=== PATIENT | female | born 1960 | race Caucasian/White ===

== ENCOUNTER → 2024-02-25 09:25 | Outpatient (REF) | payer BC, SELFPAY | LOC: RAD 09:25 | PROVIDERS: ATTENDING PHYSICIAN Internal Medicine Endocrinology, Diabetes & Metabolism; FAMILY PHYSICIAN Physician Assistant Medical | DX: R22.1 Localized swelling, mass and lump, neck (principal) | CPT/HCPCS: 70492; Q9967 ==

== ENCOUNTER → 2024-03-20 06:21 | Day surgery (SDC) | payer BC, SELFPAY | LOC: GI 06:21 | PROVIDERS: ATTENDING PHYSICIAN Internal Medicine Gastroenterology; FAMILY PHYSICIAN Physician Assistant Medical | DX: K22.2 Esophageal obstruction (principal); K31.A0 Gastric intestinal metaplasia, unspecified; K31.7 Polyp of stomach and duodenum; K29.50 Unspecified chronic gastritis without bleeding | CPT/HCPCS: 43239; 88305; 88342 ==

== ENCOUNTER 2024-04-28 09:00 | Emergency (ER) | payer BC, SELFPAY ==
[2024-04-28 09:03] VITALS: BP 162/90
--- NOTE | 2024-04-28 09:58 | ED.GENMED ---
History of Present Illness
General
Chief Complaint: Abdominal Pain
Source: patient
Exam Limitations: none
Time Seen by Provider: 04/28/24 09:32
Nursing documentation reviewed up to this point in time: agreed with
History of Present Illness
History of Present Illness:
Patient presents to ED secondary to intermittent upper abdominal pain associated with nausea sensation over the past 5 days. Abdominal pain described as sharp, nonradiating, without any alleviating or exacerbating factors. Denies fever or chills.
Denies trauma. Denies vomiting or diarrhea. Denies change in bowel habits. denies recent change in medications or diet. Denies previous history of similar symptoms.
Review of Systems
Review of Systems
Allergies reviewed?: Yes
All Other Systems: ROS reviewed and negative except as documented in HPI and ROS
Constitutional: Reports no symptoms; Denies fever or chills
ABD/GI: Reports abdominal pain and vomiting; Denies nausea or diarrhea
: Reports no symptoms
Musculoskeletal: Reports no symptoms
Skin: Reports no symptoms
Neurological: Reports no symptoms
Phy Exam
Physical Exam
Physical Exam:
Physical Exam
General: mild distress, not acutely ill. afebrile
Head: nc/at. eomi
Neck: supple. no meningeal signs.
Heart: s1/s2 regular rate and rhythm, no murmur. equal radial pulses.
Lungs: no acute respiratory distress. clear bilaterally
Abdomen: normal bowel sounds. no distention. mild RUQ tenderness to palpation
Neuro: alert and oriented. no focal neurological deficits
Skin: no rash
Psychiatric: well kept. interactive and cooperative
Extremities: no edema. no calf tenderness.
Course
Orders/Labs/Results
Orders:
Orders
04/28/24 09:08
ECG [Electrocardiogram (*1)] Urgent
Reason for Study: Abdominal Pain
EKG- Treatment ONCE
04/28/24 09:55
US Abdomen Complete/Upper Urgent
Comment:
Reason For Exam: RUQ pain
04/28/24 10:23
Complete Blood Count/With Diff Urgent
Comprehensive Metabolic Panel Urgent
Lipase Urgent
Urinalysis Reflex To Culture Urgent
Date Specimen was Collected: 04/28/24
Time Specimen was Collected: 10:19
04/28/24 11:29
CT Abd/pel W Iv And Oral Contr Urgent
Comment:
Reason For Exam: upper abdominal pain
Iohexol [Omnipaque] See Protocol PO NOW STA
Abnormal Lab Results
04/28/24
10:23
Carbon Dioxide 31 H mmol/L
(22-30)
04/28/24 10:23
04/28/24 10:23
Vital Signs
Initial and Last Documented VS:
Initial Vital Signs
Temp Pulse Resp BP Pulse Ox
97.8 F 70 18 162/90 96
04/28/24 09:03 04/28/24 09:03 04/28/24 09:03 04/28/24 09:03 04/28/24 09:03
Last Documented Vital Signs
Temp Pulse Resp BP Pulse Ox
97.8 F 59 16 147/83 95
04/28/24 09:03 04/28/24 15:50 04/28/24 15:50 04/28/24 15:50 04/28/24 15:50
MDM/Problems Addressed
MDM/Problems Addressed:
Patient with unremarkable initial workup, including blood work and ultrasound. However, in light of patient's persistent abdominal pain, will order CT abdomen pelvis with contrast for further evaluation.
CT abd/pel: no acute findings.
Pt will be discharged home in stable condition, with recommendation to f/u with pmd/GI physician for re-evaluation, or return to ED with worsening symptoms, i.e. fever/worsening pain/vomiting.
*Critical Care Note
Total Time (30-74mins, 75-104mins- exclusive of procedures): Not Applicable
ED Attending Note
-
Portions of this chart may have been created with voice recognition software.� Occasional wrong word or��sound alike� substitutions may have occurred due to the inherent limitations of voice recognition software.
Discharge Plan
Departure
Patient Disposition: Home (Routine Discharge)
Date of Disposition: 04/28/24
Time of Disposition: 15:47
Patient with high blood pressure during this ER visit?: Yes
Condition: Good
Discharge Problem:
Abdominal pain
Instructions: [place] Diet, Low-fat diet, Abdominal Pain
Referrals:
Rich Carey PA-C [Family Provider] -
Activity Restrictions/Additional Instructions:
As discussed, please follow-up with your primary care physician and/or GI physician for further evaluation and treatment. Please return to ED with worsening symptoms, i.e. fever/worsening pain/vomiting.
Interventions
Interventions:
*Risk Screen - Suicide Last Done: 04/28/24 09:03
*General Assessment Last Done: 04/28/24 09:03
*Neglect/Abuse Screening Last Done: 04/28/24 09:03
ED- Fall Risk Assessment Last Done: 04/28/24 10:20
*ED COVID-19 Vaccine History Last Done: 04/28/24 10:20
*Nursing Disposition Last Done: 04/28/24 15:55
XO-Onlfsz-Bktluvfvqp Assessment Last Done: 04/28/24 10:18
Discharge Date and Time
Discharge Date/Time: 04/28/24 15:55
Print Language: [place]
[2024-04-28 10:13] VITALS: BMI 30.8
[2024-04-28 10:26] VITALS: BP 153/92
[2024-04-28 10:35] LABS: % Basophils 0.8 % (0-2); % Immature Granulocytes 0.1 % (0-0.5); % Lymphocytes 31.1 % (20.5-51.1); % Monocytes 6.1 % (1.7-9.3); % Neutrophils 58.9 % (42.2-75.2); Absolute Basophils 0.1 10^3/uL (0-0.2); Absolute Eosinophils 0.2 10^3/uL (0-0.7); Absolute Lymphocytes 2.2 10^3/uL (1.2-3.4); Absolute Monocytes 0.4 10^3/uL (0.1-0.6); Absolute Neutrophils 4.2 10^3/uL (1.4-6.5); Hematocrit 44.4 % (37.0-47.0); Hemoglobin 14.8 g/dL (12.0-16.0); Mean Corp Hgb Conc. 33.3 g/dL (33.0-37.0); Mean Corpuscular Hgb 28.5 pg (27.0-31.0); Mean Corpuscular Volume 85.4 fL (81.0-99.0); Mean Platelet Volume 9.5 fL (7.4-10.4); Nucleated Red Blood Cells % 0 %; Platelet Count 256 10^3/uL (130-400); Red Cell Dist. Width 13.1 % (11.5-14.5); White Blood Cell Count 7.1 10^3/uL (4.8-10.8)
[2024-04-28 10:43] LABS: Urine Albumin Negative (Neg - Trace); Urine Bilirubin Negative (Negative); Urine Character Clear (Clear); Urine Color Yellow; Urine Glucose Negative (Negative); Urine Ketone Negative (Negative); Urine Leukocyte Negative (Negative); Urine Nitrite Negative (Negative); Urine Occult Blood Negative (Negative); Urine Urobilinogen Negative (Neg - 1+)
[2024-04-28 10:50] LABS: ALT (SGPT) 21 U/L (0-35); AST (SGOT) 27 U/L (14-36); Albumin 4.5 g/dl (3.5-5.0); Alkaline Phosphatase 69 U/L (38-126); Blood Urea Nitrogen 16 mg/dl (7-17); Calcium 9.4 mg/dl (8.4-10.2); Carbon Dioxide 31 mmol/L (22-30); Chloride 104 mmol/L (98-107); Estimated Creatinine Clearance 80 ml/min; Glucose 95 mg/dl (70-99); Potassium 4.3 mmol/L (3.5-5.1); Sodium 139 mmol/L (135-145); Total Bilirubin 0.8 mg/dl (0.2-1.3); Total Protein 7.3 g/dl (6.3-8.2); eGFR > 60.00
[2024-04-28 11:25] LABS: Lipase 80 U/L (23-300)
[2024-04-28 12:15] VITALS: BP 149/77
[2024-04-28] MEDS: OMNIPAQUE 100 ML PO (12:30)
[2024-04-28 13:10] VITALS: BP 114/74
[2024-04-28 14:00] VITALS: BP 145/79
[2024-04-28 15:50] VITALS: BP 147/83
--- NOTE | 2024-04-28 15:55 | EDRN ---
Pt stated nausea was much less and only sl.
== END 2024-04-28 15:55 | disposition home or self-care (01) ==
LOC: EMR 09:00
PROVIDERS: EMERGENCY PHYSICIAN Emergency Medicine; FAMILY PHYSICIAN Physician Assistant Medical
DX: R10.10 Upper abdominal pain, unspecified (principal)
CPT/HCPCS: 99284; 74177; 76700; 80053; 81003; 83690; 85025; 93005; Q9967

== ENCOUNTER 2024-06-14 07:29 | Emergency (ER) | payer BC, SELFPAY ==
[2024-06-14 07:33] VITALS: BP 168/96
--- NOTE | 2024-06-14 07:59 | ED.GENMED ---
History of Present Illness
General
Chief Complaint: Bowel Problem
Source: patient
Exam Limitations: none
Time Seen by Provider: 06/14/24 07:39
Nursing documentation reviewed up to this point in time: agreed with
History of Present Illness
History of Present Illness:
63 y/o F with ho prolapsed uterus, scheduled for hysterectomy
recently had some catheter induced bladder testing
sine having dec urination and some urgency
she also got constipated
feels urg to move bowels but cannot
she has never had constipation this bad. tried 2 doses of OTC laxative, one last night and one the day before without relief
has genraelized abd pain, distension and nausea
no vomiting
subjective chills
Review of Systems
Review of Systems
Allergies reviewed?: Yes
All Other Systems: Not applicable
Phy Exam
Physical Exam
Physical Exam:
GENERAL: Alert , in no apparent distress
EYE: pupils equal and reactive
NECK: Supple
ENT: o/p clr, mmm.
CARDIAC: Regular rate and rhythm .
LUNGS: Clear breath sounds bilaterally, no acute respiratory distress, no wheezes/rales/rhonchi
ABDOMEN: Soft, slightly distended, tender right side, no r/g, no cvat, normal bowel sounds
Nonbleeding external hemorrhoids
Stool impaction in the rectum
NEUROLOGICAL: Alert and oriented, no focal neuro deficits
SKIN: Warm and dry, skin intact.
MUSCULOSKELETAL: No edema, well perfused. neg rajat's sign
PSYCH: Normal and appropriate interaction.
Course
Orders/Labs/Results
Orders:
Orders
06/14/24 08:49
Complete Blood Count/With Diff Urgent
Comprehensive Metabolic Panel Urgent
Urinalysis Reflex To Culture Urgent
Date Specimen was Collected: 06/14/24
Time Specimen was Collected: 07:58
Abnormal Lab Results
06/14/24
08:49
Abs Immat Gran (auto) 0.1 H 10^3/uL
(0-0.05)
Absolute Neuts (auto) 7.6 H 10^3/uL
(1.4-6.5)
Immature Gran % 0.7 H %
(0-0.5)
Neutrophils % 79.2 H %
(42.2-75.2)
Lymphocytes % 15.5 L %
(20.5-51.1)
Glucose 112 H mg/dl
(70-99)
06/14/24 08:49
06/14/24 08:49
Vital Signs
Initial and Last Documented VS:
Initial Vital Signs
Temp Pulse Resp BP Pulse Ox
98.5 F 76 18 168/96 97
06/14/24 07:33 06/14/24 07:33 06/14/24 07:33 06/14/24 07:33 06/14/24 07:33
Last Documented Vital Signs
Temp Pulse Resp BP Pulse Ox
97.9 F 66 20 149/87 92
06/14/24 08:54 06/14/24 09:54 06/14/24 09:54 06/14/24 09:54 06/14/24 08:54
MDM/Problems Addressed
Differential Diagnosis Includes:
urinary retention, uti, constipation
MDM/Problems Addressed:
63 y/o F
h/o uterine prolapse
seen by urogyne last week and had bladder procedure, straight cath a few times
she has had dec urination the past few days with urgency
and then constipation with abd pain and pressure
feels urge to poop and pee, cannot poop despite 2 doses laxative
subjective chills
abdomen distended and slightly tender
pt has ext nonbleeding hem
stool in rectum disimpmacted
tried urinating a few times but only dribbles
after disimpaction pt able to move bowels on own well
but she still cannot void
bladder scan [address] gonzalez, likely infection causing retention
06/14/2024 0854 AM
Patient was able to void and postvoid residual was 135 mL so she does not require Gonzalez. Will plan on still checking UA and electrolytes anticipate discharge
06/14/2024 0925 AM
ua neg
labs reassuring
pain resolved
turns out the urinary frquency is chrnoic from her prolapse
d/c home
*Critical Care Note
Total Time (30-74mins, 75-104mins- exclusive of procedures): Not Applicable
ED Attending Note
-
Portions of this chart may have been created with voice recognition software.� Occasional wrong word or��sound alike� substitutions may have occurred due to the inherent limitations of voice recognition software.
Discharge Plan
Departure
Patient Disposition: Home (Routine Discharge)
Date of Disposition: 06/14/24
Time of Disposition: 09:31
Patient with high blood pressure during this ER visit?: No
Condition: Fair
Covid-19: Not Applicable
Discharge Problem:
Constipation
Instructions: Constipation, Adult (DC)
Prescriptions:
No Action
No Current Medications
0
Referrals:
Emory Multani MD [Family Provider] - Follow up in 2-3 days
Activity Restrictions/Additional Instructions:
Drink fluids to stay hydrated. Take MiraLAX once or twice a day for the next day or 2 to make sure that you empty all the stool. Use Metamucil daily as a stool softener to prevent constipation.
Your urinalysis was normal and your blood work was reassuring. If you continue to have urinary frequency or urgency you need to follow-up with your urogynecologist but you did not require a Gonzalez catheter today and you had no signs of infection.
Return for worsening abdominal pain, urinary retention, fever or chills, vomiting etc.
Interventions
Interventions:
*Risk Screen - Suicide Last Done: 06/14/24 07:33
*General Assessment Last Done: 06/14/24 07:33
*Neglect/Abuse Screening Last Done: 06/14/24 07:33
ED- Fall Risk Assessment Last Done: 06/14/24 08:02
*ED COVID-19 Vaccine History Last Done: 06/14/24 07:33
*Nursing Disposition Last Done: 06/14/24 09:54
[facility]-Eilnbi-Atudonwsrt Assessment Last Done: 06/14/24 08:02
Discharge Date and Time
Discharge Date/Time: 06/14/24 09:54
Print Language: [place]
[2024-06-14 08:02] VITALS: BP 127/81; BMI 27.6
--- NOTE | 2024-06-14 08:27 | EDRN ---
per the provider Jasmyn GARCIA the pt was bladder scanned for 475 post void residual, Jasmyn GARCIA currently at the pts bedside speaking with the pt and the pts
--- NOTE | 2024-06-14 08:43 | EDRN ---
the pt stated that she was able to urinate and provide a urine sample, per the provider the pt was bladder scanned again post void residual for 135cc, provider notified, the pt will not receive an indwelling urinary catheter, PIV was placed and labs
drawn and sent along with urine specimen
[2024-06-14 08:54] VITALS: BP 143/83
[2024-06-14 09:07] LABS: Urine Albumin Negative (Neg - Trace); Urine Bilirubin Negative (Negative); Urine Character Clear (Clear); Urine Color Yellow; Urine Glucose Negative (Negative); Urine Ketone Negative (Negative); Urine Leukocyte Negative (Negative); Urine Nitrite Negative (Negative); Urine Occult Blood Negative (Negative); Urine Specific Gravity 1.005 (<1.030); Urine Urobilinogen Negative (Neg - 1+)
[2024-06-14 09:15] LABS: % Basophils 0.5 % (0-2); % Eosinophils 0.5 % (0-6); % Immature Granulocytes 0.7 % (0-0.5); % Lymphocytes 15.5 % (20.5-51.1); % Monocytes 3.6 % (1.7-9.3); % Neutrophils 79.2 % (42.2-75.2); Absolute Basophils 0.1 10^3/uL (0-0.2); Absolute Eosinophils 0.1 10^3/uL (0-0.7); Absolute Immature Granulocytes 0.1 10^3/uL (0-0.05); Absolute Lymphocytes 1.5 10^3/uL (1.2-3.4); Absolute Monocytes 0.4 10^3/uL (0.1-0.6); Absolute Neutrophils 7.6 10^3/uL (1.4-6.5); Hematocrit 43.3 % (37.0-47.0); Hemoglobin 14.5 g/dL (12.0-16.0); Mean Corp Hgb Conc. 33.5 g/dL (33.0-37.0); Mean Corpuscular Volume 83.8 fL (81.0-99.0); Mean Platelet Volume 10.2 fL (7.4-10.4); Nucleated Red Blood Cells % 0 %; Platelet Count 272 10^3/uL (130-400); Red Blood Cell Count 5.17 10^6/uL (4.20-5.40); Red Cell Dist. Width 12.6 % (11.5-14.5); White Blood Cell Count 9.6 10^3/uL (4.8-10.8)
[2024-06-14 09:23] LABS: ALT (SGPT) 18 U/L (0-35); AST (SGOT) 25 U/L (14-36); Albumin 4.4 g/dl (3.5-5.0); Alkaline Phosphatase 68 U/L (38-126); Blood Urea Nitrogen 15 mg/dl (7-17); Calcium 9.4 mg/dl (8.4-10.2); Carbon Dioxide 28 mmol/L (22-30); Chloride 105 mmol/L (98-107); Estimated Creatinine Clearance 72 ml/min; Glucose 112 mg/dl (70-99); Potassium 4.3 mmol/L (3.5-5.1); Sodium 143 mmol/L (135-145); Total Bilirubin 0.6 mg/dl (0.2-1.3); Total Protein 6.9 g/dl (6.3-8.2); eGFR > 60.00
[2024-06-14 09:54] VITALS: BP 149/87
== END 2024-06-14 09:54 | disposition home or self-care (01) ==
LOC: EMR 07:29
PROVIDERS: Physician Assistant; EMERGENCY PHYSICIAN Student in an Organized Health Care Education/Training Program; FAMILY PHYSICIAN Family Medicine
DX: K59.00 Constipation, unspecified (principal); R39.15 Urgency of urination; R14.0 Abdominal distension (gaseous); R10.9 Unspecified abdominal pain; R11.0 Nausea; K64.4 Residual hemorrhoidal skin tags; N81.4 Uterovaginal prolapse, unspecified; K21.9 Gastro-esophageal reflux disease without esophagitis; Z98.890 Other specified postprocedural states; Z87.891 Personal history of nicotine dependence; Z88.1 Allergy status to other antibiotic agents; Z88.2 Allergy status to sulfonamides; Z88.8 Allergy status to other drugs, medicaments and biological substances
CPT/HCPCS: 99283; 51798 ×2; 80053; 81003; 85025